=== PATIENT | female | born 1990 | race Caucasian/White ===

== ENCOUNTER 2025-01-14 17:40 | Inpatient (IN) | payer OTHER ==
[~2025-01-14] VITALS: Ht 154.9 cm; Wt 77.1 kg
[2025-01-14] MEDS: IV NS 0.9% 1,000 ML BAG IV ONE ×2 (18:00→22:33)
[2025-01-14 18:21] LABS: PLATELET COUNT (AUTO) 218 K/uL (150-450); RED BLOOD CELL COUNT(AUTO) 4.04 MIL/uL (4.0-5.2); RED CELL DISTRIBUTION WIDTH 13.9 % (11.5-15.0); WHITE BLOOD COUNT (AUTO) 4.0 K/uL (4.3-11.0)
[2025-01-14 18:29] LABS: CALCIUM, SERUM 7.9 mg/dL (8.5-10.1); CREATININE 1.1 mg/dL (0.6-1.3); SODIUM SERUM 140.0 mmol/L (136-145); UREA NITROGEN, BLOOD 19.0 mg/dL (7-18)
[2025-01-15] MEDS ORDERED: MAGNESIUM HYDROXIDE 30 ML UDC PO PRN (00:30)
[2025-01-15] MEDS ORDERED: TEMAZEPAM 15 MG CAPSULE PO PRN (00:30)
[2025-01-15] MEDS ORDERED: ONDANSETRON HCL/PF 4 MG/2 ML VIAL IVP PRN (00:30)
[2025-01-15] MEDS ORDERED: Z GUARD REMEDY 4 OZ OINT TP PRN (00:30)
[2025-01-15] MEDS ORDERED: MAG HYDROX/AL HYDROX/SIMETH 30 ML UDC PO PRN (00:30)
[2025-01-15] MEDS ORDERED: HYDROCODONE/APAP 5/325MG TABLET PO PRN (00:30)
[2025-01-15] MEDS: IV NS 0.9% 1,000 ML IV PRN (03:05)
[2025-01-15 08:00] VITALS: BP 99/63; TEMP 97.7; O2SAT 99
[2025-01-15] MEDS: PANTOPRAZOLE 40 MG TABLET.DR PO SCH (08:07)
[2025-01-15 14:52] LABS: AMPHETAMINE, URINE NEGATIVE (NEGATIVE); BARBITURATE, URINE NEGATIVE (NEGATIVE); BENZODIAZEPINE, URINE NEGATIVE (NEGATIVE); CANNABINOID, URINE NEGATIVE (NEGATIVE); COCCAINE, URINE NEGATIVE (NEGATIVE); OPIATE, URINE NEGATIVE (NEGATIVE)
[2025-01-15] MEDS: ACETAMINOPHEN 325 MG TABLET PO PRN (15:24)
[2025-01-15 16:00] VITALS: BP 101/62; TEMP 98.1; O2SAT 99
== END 2025-01-15 16:31 | DRG 204 ==
LOC: ER 17:42 → MEDSG1 01-15 03:02 → TELE1 01-15 04:02
DX: R55 Syncope and collapse (principal); E83.51 Hypocalcemia; F32.A Depression, unspecified
CPT/HCPCS: 36415; 80048-TC; 84702-TC; 85025-TC; G0378; J7030